=== PATIENT | male | born 1965 | race Caucasian/White ===

== ENCOUNTER → 2017-10-30 | Outpatient (REF) ==
[~2017-10-30] MED LIST: CIALIS20 MG PO; COZAAR 50MG50 MG/TAB PO; DEPO-TESTOS100 MG/ML IM; HCTZ 25MG TAB25 MG PO; LIPITOR20 MG PO; NORCO 325 MG-51 TAB PO; PRILOSEC 20MG20 MG PO; RITALIN 20M20 MG/TAB PO; VIAGRA100 MG PO; WELLBUTRIN 75MG75 MG PO
[2017-10-30 19:11] LABS: THYROID STIMULATING HORMONE 1.83 uIU/mL (0.465-4.680)
[2017-10-30 19:52] LABS: PSA-TOTAL 0.56 ng/mL (0-4)
== END ==
LOC: ZLAB.WCH 18:25
PROVIDERS: Internal Medicine
DX: Z01.89 Encounter for other specified special examinations (principal)
CPT/HCPCS: G0103